=== PATIENT | female | born 1950 | race Caucasian/White ===

== ENCOUNTER 2021-09-25 10:20 | Emergency (ER) | payer MEDICARE ==
[~2021-09-25] VITALS: Ht 165.1 cm; Wt 63.0 kg
[2021-09-25] MEDS ORDERED: PRED20TA PO (10:33)
[2021-09-25 11:23] LABS: BASO % 0.4 % (0.0-1.0); EOS % 0.4 % (0.0-3.0); HEMATOCRIT 35.8 % (36.0-47.0); HEMOGLOBIN 11.4 g/dl (12.0-15.5); LYMPH # 1.1 10^3/uL (1.5-5.0); LYMPH % 11.8 % (24.0-44.0); MEAN CORPUSCULAR HEMOGLOBIN 30.4 pg (27.0-33.0); MEAN CORPUSCULAR HGB CONC 31.8 g/dl (32.0-36.5); MEAN CORPUSCULAR VOLUME 95.5 fl (80.0-96.0); MONO # 0.5 10^3/uL (0.0-0.8); MONO % 5.7 % (2.0-8.0); NEUTROPHILS # 7.2 10^3/uL (1.5-8.5); NEUTROPHILS % 81.4 % (36.0-66.0); PLATELET COUNT, AUTOMATED 287 10^3/uL (150-450); RED BLOOD COUNT 3.75 10^6/uL (4.00-5.40); WHITE BLOOD COUNT 8.9 10^3/uL (4.0-10.0)
[2021-09-25 11:34] LABS: INR 0.9; PARTIAL THROMBOPLASTIN TIME 24.7 SECONDS (25.9-37.0); PROTHROMBIN TIME 12.5 SECONDS (12.7-14.5)
[2021-09-25 11:39] LABS: BLOOD UREA NITROGEN 13 MG/DL (7-18); CALCIUM LEVEL 10.1 MG/DL (8.8-10.2); CARBON DIOXIDE LEVEL 29 MEQ/L (21-32); CHLORIDE LEVEL 109 MEQ/L (98-107); CREATININE FOR GFR 0.72 MG/DL (0.55-1.30); GLOMERULAR FILTRATION RATE > 60.0 (>39); GLUCOSE, FASTING 113 MG/DL (70-100); POTASSIUM SERUM 3.9 MEQ/L (3.5-5.1); SODIUM LEVEL 142 MEQ/L (136-145)
[2021-09-25 14:38] LABS: C REACTIVE PROTEIN QUANTITATIV < 0.30 MG/DL (0.00-0.30)
[2021-09-25 14:46] LABS: ERYTHROCYTE SEDIMENTATION RATE 41 mm/hr (0-30)
[2021-09-25 16:30] VITALS: BP 130/63
== END 2021-09-25 16:43 | disposition home or self-care (01) ==
LOC: M ED 10:20
DX: M62.81 Muscle weakness (generalized) (principal); R94.31 Abnormal electrocardiogram [ECG] [EKG]

== ENCOUNTER → 2021-12-18 | Outpatient (CLI) | payer MEDICARE ==
[~2021-12-18] MED LIST: PRED20TA PO
[2021-12-18 14:34] LABS: HEMOGLOBIN A1c 5.6 %
[2021-12-18 14:42] LABS: TOTAL PROTEIN 8.1 GM/DL (6.4-8.2)
[2021-12-19 11:41] LABS: ALBUMIN 4.26 GM/DL (3.29-5.55); ALBUMIN % 52.6 % (55.8-66.1); ALPHA-1-GLOBULIN % 4.6 % (2.9-4.9); ALPHA-1-GLOBULINS 0.37 GM/DL (0.17-0.41); ALPHA-2-GLOBULINS 1.01 GM/DL (0.42-0.99); ALPHA-2-GLOBULINS % 12.5 % (7.1-11.8); BETA-1-GLOBULINS 0.45 GM/DL (0.28-0.60); BETA-1-GLOBULINS % 5.5 % (4.7-7.2); BETA-2-GLOBULINS 0.35 GM/DL (0.19-0.55); BETA-2-GLOBULINS % 4.3 % (3.2-6.5); GAMMA GLOBULIN % 20.5 % (11.1-18.8); GAMMA GLOBULINS 1.66 GM/DL (0.65-1.58)
[2021-12-19 13:30] LABS: TOTAL 25(OH) VITAMIN D 46.5 NG/ML (30.0-100.0)
[2021-12-19 14:34] LABS: VITAMIN B12 LEVEL 1052 PG/ML (247-911)
[2021-12-23 17:09] LABS: CERULOPLASMIN 28.9 mg/dL (19.0-39.0); VITAMIN B1 LEVEL WHOLE BLOOD 170.8 nmol/L (66.5-200.0); VITAMIN B6,PYRIDOXAL PHOSPHATE 8.6 ug/L (3.4-65.2); VITAMIN E(ALPHA TOCOPHEROL) 10.9 mg/L (9.0-29.0); VITAMIN E(GAMMA TOCOPHEROL) 1.5 mg/L (0.5-4.9)
== END ==
LOC: M LAB 12:13
PROVIDERS: ATTEND Psychiatry & Neurology Neurology
DX: R53.1 Weakness (principal); E11.9 Type 2 diabetes mellitus without complications; E53.8 Deficiency of other specified B group vitamins; E61.0 Copper deficiency; Z79.899 Other long term (current) drug therapy